=== PATIENT | female | born 1970 | race Caucasian/White ===

== ENCOUNTER 2017-04-17 05:55 | Day surgery (SDC) | payer OTHER ==
[2017-04-17] MEDS ORDERED: ceFAZolin 2 GM PREMIX(*) 2 GM/50 ML BAG IVPB ONE (05:56)
[2017-04-17] MEDS ORDERED: Sodium Citrate/Citric Acid* 15 ML UDC ONE (05:56)
[2017-04-17] MEDS ORDERED: Buffered Lidocaine 0.9% SYRIN* 5 ML/SYR SYRINGE ONE (05:56)
[2017-04-17] MEDS ORDERED: Sodium Citrate/Citric Acid* 15 ML UDC PO ONE (06:00)
[2017-04-17] MEDS ORDERED: Buffered Lidocaine 0.9% SYRIN* 5 ML/SYR SYRINGE INTRADERM ONE (06:00)
[2017-04-17] MEDS ORDERED: Lidocaine 2% PF * 5 ML VIAL ONE (07:20)
[2017-04-17] MEDS ORDERED: fentaNYL* 50 MCG/ML 2 ML VIAL (100 MCG VIAL) ONE (07:20)
[2017-04-17] MEDS ORDERED: Propofol* 10 MG/ML 20 ML BTL IV PUSH ONE (07:20)
[2017-04-17] MEDS ORDERED: Bupivacaine 0.5% SDV PF* 30 ML VIAL ONE (07:26)
[2017-04-17] MEDS ORDERED: Ketorolac INJ* 30 MG/ML 1 ML VIAL IV PRN (07:58)
[2017-04-17] MEDS ORDERED: fentaNYL* 50 MCG/ML 2 ML VIAL (100 MCG VIAL) IV PRN (07:58)
[2017-04-17] MEDS ORDERED: Ondansetron INJ* 2 MG/ML VIAL IV PRN (07:58)
[2017-04-17 09:30] VITALS: BP 124/81
--- NOTE | 2017-04-18 15:27 | OP ---
DATE OF OPERATION: 04/17/17 - [facility] DATE OF : 66 SURGEON: Scotty Orellana MD ASSISTANTS: 1. Stone Palm MD 2. Manuel NASRA student. ANESTHESIOLOGIST: Dudley Cain DO ANESTHESIA: General anesthesia, local anesthesia 8 cc of 0.5% Marcaine with epinephrine. 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 POST-OP DIAGNOSIS: Right foot Matias's neuroma, symptomatic, right foot between third and fourth toes/metatarsals. OPERATIVE PROCEDURE: Open excision/neurectomy, Matias's neuroma, right foot between third and fourth toes/metatarsals. 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 The patient developed pain without any antecedent trauma. She described it as exclusively between the right third and fourth toes. It caused pain with weightbearing. She described her pain as electric in nature and numbness and tingling along the plantar aspect between those two toes. She was treated with a cortisone injection between the third and fourth metatarsal heads, which caused more constant pain, however, reduced the numbness and tingling associated with it. She also tried wide toe box shoes, multiple different types of shoes, metatarsal pads, and other modalities of nonoperative treatment, which she failed. She had an MRI which showed neuromas, more specifically perineural fibrosis, both between third and fourth and between second and third toes on the right foot. Her history and exam are only consistent with a symptomatic Matias's neuroma between the third and fourth toe, we opted to just surgically manage that. In clinic, we discussed benefits, risks, and potential complications of surgery. She is explained that she is very likely to have numbness, given that we would be removing a nerve. I consulted Dr. Stone Palm to join me for this surgery and he gracefully agreed. ANTIBIOSIS: Ancef 2 g IV. IV FLUIDS: 1000 cc crystalloid. TOURNIQUET TIME: 25 minutes at 250 mmHg. COMPLICATIONS: None. ESTIMATED BLOOD LOSS: 0 cc. SPECIMEN: Matias's neuroma sent to Pathology. IMPLANTS: None. DESCRIPTION OF PROCEDURE: Preoperative written consent was obtained. Operative extremity was marked in preoperative holding. This was actually done by both Dr. Palm and myself. The patient was taken back to the operating room and placed supine on operating room table. General anesthesia was induced. A tourniquet was placed around the right thigh but not yet elevated. The right lower extremity was prepped with chlorhexidine and then ChloraPrep and then draped sterilely. Surgical time -out was performed. An Esmarch was applied and the tourniquet was elevated at 250 mmHg. A longitudinal dorsal skin incision was made between the third and fourth metatarsals, approximately 5 cm in length. We dissected through the subcutaneous tissue with spreading dissection using scissors. Several very small superficial traversing veins were coagulated. A finger dissection was also used to spread apart the subcutaneous tissue. Laminar spreaders were then entered between the third and fourth distal metatarsal shaft. This opened up the space nicely. A spreading dissection was continued down to the intermetatarsal ligament. This was incised with a deep 15-blade. This allowed excellent visualization of the neuroma. A bulbous nerve tissue had been visualized even before the ligament had been incised but came better visualized with release of the ligament. We dissected about that nerve both proximal and distal to the bifurcation in it that was very clearly obvious. No intimately related artery was appreciated. We dissected at least 1 cm distal and at least 3 cm proximal to the bifurcation. With traction tension on the nerve distally, we then incised the nerve, allowing the cut nerve end to retract into the fatty tissues. We then moved proximally and with tension on the nerve, dissecting at least 3 cm proximal to the bifurcation, cut the nerve and allowed the stump to retract far and proximal. The removed segment of nerve measure 5 cm in length. We irrigated well the wound and looked for any additional nerve branches from the neuroma and none were visualized. There was no bleeding to cauterize. Irrigation again. The subcutaneous tissue was closed with 3 stitches using Vicryl 3-0 suture and buried simple stitches. The skin was then closed with a running stitch using nylon 4-0 suture. Xeroform, two 4x4s, Kerlix above the foot and ankle followed by a 4-inch Garth bandage around the foot and ankle. A tourniquet was elevated. The patient was given a postop hard sole shoe. DISPOSITION: The patient was to be discharged home when medically stable. She will be given crutches but will be made weightbearing as tolerated. She can transition off those crutches and transition out of that shoe as her pain allows. The patient was given a limited Percocet prescription for pain control. The patient is to change her dressing for the first time on postoperative day #3 and then to keep it covered with once daily dressing changes from postoperative day #7. She will follow up in clinic in 10 to 14 days postoperative to have stitches removed. She has my cell phone number for any questions or problems. [id number]/[facility] #: [id number] MTDD
== END 2017-04-17 09:31 | disposition home or self-care (01) ==
LOC: OR 05:55
PROVIDERS: ATTEND Orthopaedic Surgery
DX: G57.61 Lesion of plantar nerve, right lower limb (principal)
CPT/HCPCS: 88304; A9270-GY; J0690; J2704; J3010

== ENCOUNTER 2022-03-23 05:44 | Inpatient (IN) ==
[~2022-03-23 05:44] MED LIST: Buffered Lidocaine 1% SYRIN 1 ml INTRADERM ONE; Lactated Ringers 1000 ml BAG 1,000 ML IV SCH
[2022-03-23] MEDS ORDERED: Lidocaine 1% w EPI 1:200,000 SDV 30 ML VIAL ONE (06:58)
[2022-03-23] MEDS ORDERED: Gelfoam Sponge SIZE 100 SPONGE ONE (06:58)
[2022-03-23] MEDS ORDERED: Thrombin 5,000 UNITS 1 APPLIC KIT - topical use - TOPICAL ONE (06:58)
[2022-03-23] MEDS ORDERED: Propofol 10 MG/ML 20 ML BTL ONE (06:59)
[2022-03-23] MEDS ORDERED: Lidocaine 2% PF 5 ML VIAL ONE (06:59)
[2022-03-23] MEDS ORDERED: Midazolam 2 mg/2 ml VIAL 1 mg/ml 2 ml VIAL (2 mg) ONE (06:59)
[2022-03-23] MEDS ORDERED: Dexamethasone IV 4 MG/ML VIAL 1 ml VIAL ONE (06:59)
[2022-03-23] MEDS ORDERED: fentaNYL 250 mcg/5 ml 50 MCG/ML 5 ml VIAL (250 MCG) ONE (06:59)
[2022-03-23] MEDS ORDERED: Rocuronium 50 mg VIAL 10 mg/ml 5 ml VIAL (50 mg) ONE (06:59)
[2022-03-23] MEDS ORDERED: Ondansetron 4 mg VIAL 2 MG/ML 2 ml VIAL ONE (06:59)
[2022-03-23] MEDS ORDERED: ceFAZolin 2 GM in NS PREMIX 2 GM/100 ML BAG IVPB ONE (07:18)
[2022-03-23] MEDS ORDERED: Phenylephrine IV 10 MG/ML 1 ml VIAL ONE (08:11)
[2022-03-23] MEDS ORDERED: Morphine 4 MG/ML VIAL (1 ml) IV PRN (08:39)
[2022-03-23] MEDS ORDERED: Prochlorperazine 5 mg/ml 2 ml VIAL (10 mg) IV PRN (08:39)
[2022-03-23] MEDS ORDERED: Naloxone 0.4 mg VIAL 0.4 mg/ml 1 ml VIAL IV PRN (08:39)
[2022-03-23] MEDS ORDERED: Ondansetron 4 mg VIAL 2 MG/ML 2 ml VIAL IV PRN (08:39)
[2022-03-23] MEDS ORDERED: Morphine 2 MG/ML SYRINGE IV PRN (10:55)
[2022-03-23] MEDS ORDERED: fentaNYL 100 mcg/2 ml 50 MCG/ML VIAL ONE (11:06)
[2022-03-23] MEDS: fentaNYL 100 mcg/2 ml 50 MCG/ML VIAL IV PRN ×2 (11:08→11:52)
[2022-03-23] MEDS: Lactated Ringers 1000 ml BAG 1,000 ML IV SCH (12:44)
[2022-03-23] MEDS: Ondansetron 4 mg VIAL 2 MG/ML 2 ml VIAL IV PRN (16:39)
[2022-03-24] MEDS: Lactated Ringers 1000 ml BAG 1,000 ML IV SCH (02:40)
[2022-03-24] MEDS: Ondansetron 4 mg VIAL 2 MG/ML 2 ml VIAL IV PRN (06:10)
[2022-03-24] MEDS ORDERED: CMCS: LoraTADine 10 mg TAB (NF) PO SCH (09:00)
[2022-03-24 12:11] VITALS: BP 98/61
== END 2022-03-24 14:55 | disposition home or self-care (01) | DRG 460 ==
LOC: OR 05:44 → SSU 12:21
PROVIDERS: ADMIT Neurological Surgery; ATTEND Neurological Surgery

== ENCOUNTER 2023-09-14 05:49 | Observation (INO) ==
[~2023-09-14 05:49] MED LIST changes: -Buffered Lidocaine 1% SYRIN 1 ml INTRADERM ONE; +HYDROmorphone 1 MG/1 ML SYRINGE IV PRN; -Lactated Ringers 1000 ml BAG 1,000 ML IV SCH; +Naloxone 0.4 mg VIAL 0.4 mg/ml 1 ml VIAL IV PRN; +Ondansetron 4 mg VIAL 2 MG/ML 2 ml VIAL IV PRN; +fentaNYL 100 mcg/2 ml 50 MCG/ML VIAL IV PRN
[2023-09-14] MEDS ORDERED: ceFAZolin 2 GM PREMIX 2 GM/50 ML BAG ONE (06:07)
[2023-09-14] MEDS ORDERED: Tranexamic Acid 1 GM/100ML BAG 2,000 MG/200 ML BAG IV ONE (06:07)
[2023-09-14 06:50] LABS: Rapid COVID-19 Molecular Undetected (Undetected)
[2023-09-14] MEDS ORDERED: Scopolamine 1 mg/72hr PATCH ONE ×2 (07:00→07:10)
[2023-09-14] MEDS ORDERED: ROPIVACAINE 5 MG/ML 30 ML BTL (0.5%) ONE (07:05)
[2023-09-14] MEDS ORDERED: Midazolam 2 mg/2 ml VIAL 1 mg/ml 2 ml VIAL (2 mg) ONE (07:08)
[2023-09-14] MEDS ORDERED: fentaNYL 100 mcg/2 ml 50 MCG/ML VIAL ONE ×3 (07:08→10:59)
[2023-09-14] MEDS ORDERED: Lidocaine 2% PF 5 ML VIAL ONE (07:08)
[2023-09-14] MEDS ORDERED: Propofol 0 MG/0 ML BTL ONE (07:08)
[2023-09-14] MEDS ORDERED: Phenylephrine IV 10 MG/ML 1 ml VIAL ONE (07:08)
[2023-09-14] MEDS ORDERED: Propofol 10 MG/ML 20 ML BTL ONE (07:08)
[2023-09-14] MEDS ORDERED: Rocuronium 50 mg VIAL 10 mg/ml 5 ml VIAL (50 mg) ONE ×2 (07:16→08:14)
[2023-09-14] MEDS ORDERED: Dexamethasone IV 4 MG/ML VIAL 1 ml VIAL ONE (07:57)
[2023-09-14] MEDS ORDERED: Ondansetron 4 mg VIAL 2 MG/ML 2 ml VIAL ONE ×2 (07:57→10:59)
[2023-09-14] MEDS ORDERED: HYDROmorphone 0.5 MG/0.5 ML SYRINGE ONE ×3 (08:06)
[2023-09-14] MEDS ORDERED: Glycopyrrolate IV 0.2 MG/ML 1 ML VIAL ONE ×2 (08:31→10:00)
[2023-09-14] MEDS ORDERED: Buffered Lidocaine 1% SYRIN 1 ml INTRADERM ONE (08:46)
[2023-09-14] MEDS ORDERED: Lactated Ringers 1000 ml BAG 1,000 ML IV SCH (09:00)
[2023-09-14] MEDS ORDERED: Ondansetron ODT 4 mg TAB 4 MG TAB PO PRN (10:17)
[2023-09-14] MEDS ORDERED: Lactulose 30 ml UDC PO PRN (10:17)
[2023-09-14] MEDS ORDERED: Ondansetron 4 mg VIAL 2 MG/ML 2 ml VIAL IV PRN (10:17)
[2023-09-14] MEDS ORDERED: Morphine 2 MG/ML SYRINGE IV PRN (10:17)
[2023-09-14] MEDS ORDERED: Magnesium Hydroxide LIQ 30 ML UDC PO PRN (10:17)
[2023-09-14] MEDS: Lactated Ringers 1000 ml BAG 1,000 ML IV SCH ×2 (12:39→22:33)
[2023-09-14] MEDS: ceFAZolin 1 GM ADVAN 1 GM in NS 0.9% 50 ML 50 ML IVPB SCH (15:14)
[2023-09-14 20:15] LABS: Hematocrit 29.1 % (35-45)
[2023-09-14] MEDS: Magnesium Hydroxide LIQ 30 ML UDC PO SCH (21:21)
[2023-09-15] MEDS: ceFAZolin 1 GM ADVAN 1 GM in NS 0.9% 50 ML 50 ML IVPB SCH ×2 (00:05→09:20)
[2023-09-15 06:16] LABS: Platelet Count 146 10^3/uL (150-450)
[2023-09-15 06:37] LABS: Calcium 8.3 mg/dL (8.6-10.3); Creatinine, Serum 0.77 mg/dL (0.51-0.95); Potassium 3.9 mmol/L (3.5-5.0); eGFR CKD-EPI 91.6 (>60)
[2023-09-15 07:03] LABS: Hematocrit 27.7 % (35-45); Hemoglobin 9.5 g/dL (11.5-14.3); Mean Platelet Volume 9.2 fL (7.5-11.2)
[2023-09-15] MEDS: Lactated Ringers 1000 ml BAG 1,000 ML IV SCH ×2 (09:17→20:58)
[2023-09-15] MEDS: Vitamin THERAPEUTIC TAB PO SCH (09:58)
[2023-09-15] MEDS: Magnesium Hydroxide LIQ 30 ML UDC PO SCH ×2 (10:00→21:01)
[2023-09-16 05:03] LABS: Platelet Count 113 10^3/uL (150-450)
[2023-09-16 06:25] LABS: Hematocrit 26.4 % (35-45); Mean Platelet Volume 9.4 fL (7.5-11.2)
[2023-09-16] MEDS: Lactated Ringers 1000 ml BAG 1,000 ML IV SCH (06:30)
[2023-09-16] MEDS: Magnesium Hydroxide LIQ 30 ML UDC PO SCH (08:01)
[2023-09-16] MEDS: Vitamin THERAPEUTIC TAB PO SCH (08:01)
[2023-09-16 10:41] VITALS: BP 100/63
== END 2023-09-16 11:58 | disposition home or self-care (01) ==
LOC: SSU 05:49 → OR 05:49
PROVIDERS: ADMIT Orthopaedic Surgery Adult Reconstructive Orthopaedic Surgery; ATTEND Orthopaedic Surgery Adult Reconstructive Orthopaedic Surgery